=== PATIENT | female | born 1990 | race Two or more races ===

== ENCOUNTER 2023-12-24 04:11 | Inpatient (IN) | payer OTHER ==
[~2023-12-24] VITALS: Ht 162.6 cm; Wt 172.4 kg
[2023-12-24 06:34] LABS: PH,URINE 5.5 (5.0-8.0); URINE APPEARANCE Cloudy; URINE BILIRRUBIN Negative (NEGATIVE); URINE BLOOD Negative; URINE COLOR Dark Yellow; URINE GLUCOSE Negative (NEGATIVE); URINE LEUKOCYTE Moderate; URINE NITRATE Negative; URINE PROTEIN Trace (NEGATIVE)
[2023-12-24 06:37] LABS: URINE BACTERIA 4373.2 uL (0.0-1933); URINE EPITHELIAL CELLS 62.7 uL (0.0-38.8); URINE RBC 12.7 uL (0.0-20.8)
[2023-12-24 06:47] LABS: URINE CRYSTALS FEW /HPF
[2023-12-24 06:48] LABS: URINE MUCUS MODERATE
[2023-12-24 06:57] LABS: HEMATOCRIT 32.9 % (36.0-45.00); MEAN CELL VOLUME 78.7 fL (80.00-100.00); MEAN CORPUSCULAR HEMOGLOBIN 26.3 pg (27.00-32.0); MEAN CORPUSCULAR HGB CONC 33.4 g/dl (32.0-36.0); PLATELET COUNT 375 K/uL (150-450); RED BLOOD COUNT 4.18 M/uL (4.00-6.00); RED CELL DISTRIBUTION WIDTH 16.3 % (11.5-14.5)
[2023-12-24 07:20] LABS: ALBUMIN 2.9 gm/dL (3.4-5.0); BILIRUBIN TOTAL 0.35 mg/dL (0.3-1.2); CREATININE SERUM 0.46 mg/dL (0.55-1.02); GFR 158.44; GLOBULINA 3.9 G/DL (2.4-3.5); POTASSIUM 3.43 mEq/L (3.5-5.1); TOTAL PROTEIN 6.8 gm/dL (6.4-8.2)
[2023-12-24 07:40] LABS: INR 1.01; PARTIAL THROMBOPLASTIN TIME 27.6 SECONDS (22.0-34.0); PROTHROMBIN TIME 10.6 SECONDS (9.0-11.5)
[2023-12-24] MEDS ORDERED: HUMULIN N100 UNIT/2 IM (07:44)
[2023-12-24] MEDS ORDERED: IRON325 MG PO (07:44)
[2023-12-24] MEDS ORDERED: PRENATAL TABLE1 EAC1 PO (07:45)
[2023-12-24] MEDS ORDERED: MISOPROSTOL 100 MCG TABLET ONE (08:12)
[2023-12-24] MEDS ORDERED: MISOPROSTOL 100 MCG TABLET VAG SCH (08:45)
[2023-12-24] MEDS ORDERED: CLINDAMYCIN PHOSPHATE 900 MG in 0.9 % SODIUM CHLORIDE 100 ML IV SCH (10:13)
[2023-12-24] MEDS ORDERED: PROMETHAZINE HCL 50 MG/ML AMPUL IV ONE ×2 (10:30→18:45)
[2023-12-24] MEDS ORDERED: MEPERIDINE HCL/PF 50 MG/ML VIAL IV ONE ×2 (10:30→18:45)
[2023-12-24] MEDS ORDERED: PROMETHAZINE HCL 25 MG/ML AMPUL ONE ×4 (10:36→15:53)
[2023-12-24] MEDS ORDERED: OXYTOCIN 20 UNITS/1000ML RL PIGGYBAG IV ONE (15:38)
[2023-12-24] MEDS ORDERED: OXYTOCIN 1,000 ML IV ONE (18:45)
[2023-12-24] MEDS ORDERED: RINGERS SOLUTION,LACTATED 1,000 ML IV SCH (19:15)
[2023-12-25] MEDS ORDERED: CLINDAMYCIN PHOSPHATE 150 MG/ML (900mg) ONE (07:37)
== END 2023-12-25 12:15 | disposition home or self-care (01) | DRG 807 ==
LOC: LDR 04:11 → SURG 04:11
PROVIDERS: ADMIT Specialist; ATTEND Specialist
PROC: 10E0XZZ Delivery of Products of Conception, External Approach (ICD-10-PCS; principal; 2023-12-24)
PROC: 3E033VJ Introduction of Other Hormone into Peripheral Vein, Percutaneous Approach (ICD-10-PCS; 2023-12-24)
PROC: 3E0P7VZ Introduction of Hormone into Female Reproductive, Via Natural or Artificial Opening (ICD-10-PCS; 2023-12-24)
PROC: 4A1HXCZ Monitoring of Products of Conception, Cardiac Rate, External Approach (ICD-10-PCS; 2023-12-24)
PROC: BU4CZZZ Ultrasonography of Uterus and Ovaries (ICD-10-PCS; 2023-12-25)
DX: O36.4XX0 Maternal care for intrauterine death, not applicable or unspecified (principal); Z37.1 Single stillbirth; Z3A.19 19 weeks gestation of pregnancy; Z20.822 Contact with and (suspected) exposure to COVID-19